=== PATIENT | female | born 2000 | race Caucasian/White ===

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

== ENCOUNTER 2022-02-04 19:57 | Emergency (ER) | payer MEDICAID ==
[2022-02-04] MEDS ORDERED: Ketorolac 30 MG/ML SDV IM ONE (20:56)
[2022-02-04 21:47] LABS: STREP A BY PCR NOT DETECTED (NOT DETECT)
[2022-02-04 21:57] LABS: CORONAVIRUS COVID-19 NAA NEGATIVE (NEGATIVE)
== END 2022-02-04 22:18 | disposition home or self-care (01) ==
LOC: JD.ED 19:57
DX: R50.9 Fever, unspecified (principal); F17.210 Nicotine dependence, cigarettes, uncomplicated; Z86.16 Personal history of COVID-19; Z20.822 Contact with and (suspected) exposure to COVID-19
CPT/HCPCS: 0240U; 87651; 96372; 99283; J1885

== ENCOUNTER 2023-07-11 10:51 | Emergency (ER) | payer MEDICAID ==
[2023-07-11] MEDS ORDERED: Sodium Chloride 0.9% 10 ML Syringe FLUSH PRN (11:19)
[2023-07-11] MEDS ORDERED: Lactated Ringers 1,000 ML IV ONE (11:19)
[2023-07-11] MEDS ORDERED: Dicyclomine 10 MG Cap PO ONE (11:21)
[2023-07-11] MEDS ORDERED: Prochlorperazine 5 MG in Sodium Chloride 0.9% 50 ML IV ONE (11:22)
[2023-07-11] MEDS ORDERED: Prochlorperazine 10 MG/2 ML SDV IV ONE (11:30)
[2023-07-11 11:49] LABS: BASOPHILS PERCENT AUTO 0.2 % (0.0-1.0); EOSINOPHILS PERCENT AUTO 0.7 % (0.0-6.0); HEMATOCRIT 42.4 % (37.0-47.0); IMMATURE GRAN ABSOLUTE AUTO 0.01 K/mm3 (0.00-0.05); IMMATURE GRAN PERCENT AUTO 0.2 % (0.0-0.4); LYMPHOCYTES ABSOLUTE AUTO 0.8 K/mm3 (1.0-4.8); MEAN CORPUSCULAR HEMOGLOBIN 31.1 pg (28.0-32.0); MEAN CORPUSCULAR HGB CONC 35.4 g/dl (32.0-36.0); MEAN PLATELET VOLUME 10.1 fl (9.4-12.3); MONOCYTES ABSOLUTE AUTO 0.5 K/mm3 (0.0-0.8); MONOCYTES PERCENT AUTO 8.3 % (0.0-8.0); NEUTROPHILS ABSOLUTE AUTO 4.3 K/mm3 (1.8-7.7); NEUTROPHILS PERCENT AUTO 76.6 % (41.0-71.0); PLATELET COUNT,PLT 179 K/mm3 (150-400); RED BLOOD CELL COUNT 4.82 M/mm3 (4.10-5.30); WHITE BLOOD CELL COUNT,WBC 5.57 K/mm3 (3.9-11.3)
[2023-07-11 11:59] LABS: APPEARANCE,URINE CLEAR (Clear); BILIRUBIN,URINE NEGATIVE (Negative); COLOR,URINE YELLOW (Yellow); GLUCOSE,URINE NEGATIVE (Negative); KETONES,URINE NEGATIVE (Negative); LEUKOCYTE ESTERASE,URINE NEGATIVE (Negative); NITRITE,URINE NEGATIVE (Negative); OCCULT BLOOD,URINE TRACE-LYSED (Negative); PH,URINE 6.5 (5.0-8.0); PROTEIN,URINE NEGATIVE (Negative); UROBILINOGEN,URINE 0.2 (0.2-1.0)
[2023-07-11 12:06] LABS: A/G RATIO 1.1 (1-2); ANION GAP 15.9 (5-15); BILIRUBIN TOTAL 0.6 mg/dL (0.2-1.0); BUN/CREATININE RATIO 6.7 (14-18); CALCIUM 8.8 mg/dL (8.5-10.1); CREATININE 0.9 mg/dL (0.55-1.02); EST CRCL DRUG DOSING (CG) 82.48 mL/min; POTASSIUM,K 3.9 mEq/L (3.5-5.1); PROTEIN TOTAL,TP 7.7 g/dl (6.4-8.2)
[2023-07-11 12:15] LABS: RBC,URINE 0-5 /hpf (0-5); SQUAMOUS EPITHELIAL CELLS,UR 0-5 /hpf (0-5); WBC,URINE 0-5 /hpf (0-5)
[2023-07-11 12:16] LABS: BACTERIA,URINE RARE /hpf (FEW); MUCUS,URINE NOT SEEN /hpf (FEW)
[2023-07-11 13:07] LABS: CORONAVIRUS COVID-19 NAA NEGATIVE (NEGATIVE); INFLUENZA A NAA NEGATIVE (NEGATIVE); RESPIRATORY SYNCYTIAL VIR NAA NEGATIVE (NEGATIVE)
== END 2023-07-11 13:31 | disposition home or self-care (01) ==
LOC: JD.ED 10:51
DX: K52.9 Noninfective gastroenteritis and colitis, unspecified (principal); Z86.16 Personal history of COVID-19; Z20.822 Contact with and (suspected) exposure to COVID-19
CPT/HCPCS: 0241U; 36415; 80053; 81001; 84703; 85025; 96361; 96374; 99284-25; A9270-GY; J0780; J7120

== ENCOUNTER 2025-07-14 08:51 | Day surgery (SDC) | payer BC ==
[~2025-07-14 08:51] MED LIST: Sodium Chloride 0.9% 10 ML Syringe FLUSH PRN
[2025-07-14] MEDS ORDERED: Sodium Chloride 0.9% 10 ML Syringe FLUSH SCH (09:00)
[2025-07-14] MEDS: Lactated Ringers 1,000 ML IV SCH (09:05)
[2025-07-14] MEDS ORDERED: Propofol 200 MG/20 ML SDV ONE ×2 (09:28→09:41)
[2025-07-14] MEDS ORDERED: Ondansetron 4 MG/2 ML SDV ONE (09:31)
[2025-07-14] MEDS: Diatrizoate Meglumine/Diatrizoate Sodium 37% 120 ML Bottle PO ONE (10:32)
[2025-07-14] MEDS: Ketorolac 30 MG/ML SDV IVPUSH ONE (11:09)
== END 2025-07-14 11:48 | disposition home or self-care (01) ==
LOC: JD.SDS 08:51
PROVIDERS: ATTEND Surgery
DX: K62.5 Hemorrhage of anus and rectum (principal); K60.2 Anal fissure, unspecified; K64.9 Unspecified hemorrhoids; Z86.16 Personal history of COVID-19; Z79.899 Other long term (current) drug therapy
CPT/HCPCS: 45378; 74176; 81025; J1885; J2405; J2704; J7120; Q9963